=== PATIENT | female | born 1965 | race Two or more races ===

== ENCOUNTER 2019-02-22 12:08 | Inpatient (IN) | payer OTHER ==
[~2019-02-22] VITALS: Ht 162.6 cm; Wt 74.8 kg
[2019-03-16] MEDS ORDERED: SYNTHROID88 MCG PO (11:52)
== END 2019-03-26 16:31 | disposition home or self-care (01) | DRG 331 ==
LOC: O/R 03-23 05:30 → SURG 03-23 05:30 → SURH 03-23 10:00 → SURG 03-23 11:02 → SURH 03-23 12:15 → SURG 03-26 16:31
PROVIDERS: ADMIT Colon & Rectal Surgery
PROC: 0DJD8ZZ Inspection of Lower Intestinal Tract, Via Natural or Artificial Opening Endoscopic (ICD-10-PCS; 2019-03-23)
PROC: 3E0F7GC Introduction of Other Therapeutic Substance into Respiratory Tract, Via Natural or Artificial Opening (ICD-10-PCS; 2019-03-23)
PROC: 0DTN4ZZ Resection of Sigmoid Colon, Percutaneous Endoscopic Approach (ICD-10-PCS; principal; 2019-03-23 12:15)
DX: K57.32 Diverticulitis of large intestine without perforation or abscess without bleeding (principal); E03.8 Other specified hypothyroidism

== ENCOUNTER 2020-03-31 11:01 | Day surgery (SDC) | payer OTHER ==
[~2020-03-31 11:01] MED LIST: SYNTHROID88 MCG PO
== END 2020-03-31 15:30 | disposition home or self-care (01) ==
LOC: AMB-ENDOS 11:01
PROVIDERS: ATTEND Colon & Rectal Surgery
DX: K57.32 Diverticulitis of large intestine without perforation or abscess without bleeding (principal); K64.1 Second degree hemorrhoids; Z20.828 Contact with and (suspected) exposure to other viral communicable diseases